=== PATIENT | female | born 1955 | race Caucasian/White ===

== ENCOUNTER → 2016-10-07 | Outpatient (CLI) | payer OTHER | LOC: PET 10:47 | DX: C76.0 Malignant neoplasm of head, face and neck (principal); N89.9 Noninflammatory disorder of vagina, unspecified ==

== ENCOUNTER → 2021-02-25 | Outpatient (CLI) | payer OTHER ==
[~2021-02-25] MED LIST: IBUPROFEN 400400 M1 PO; OMEPRAZOLE 20 M20 M1 PO; PROAIR HFA8.5 GM INH; SYMBICORT160 MCG/4. INH
[2021-02-25 10:58] LABS: CREATININE 0.7 mg/dL (0.6-1.0)
== END ==
LOC: CAT 10:08
PROVIDERS: ATTEND Surgery Vascular Surgery
DX: R22.2 Localized swelling, mass and lump, trunk (principal)

== ENCOUNTER → 2021-03-06 | Outpatient (CLI) | payer OTHER ==
[2021-03-06 11:19] LABS: ABSOLUTE NEUTROPHILS 4.3 thou/uL (1.4-8.2); BASOPHILS 0.4 % (0.0-2.0); EOSINOPHILS 4.1 % (0.0-3.0); HEMATOCRIT 33.9 % (37.0-47.0); HEMOGLOBIN 10.8 gm/dL (12.0-15.0); LYMPHOCYTES 9.8 % (24.0-44.0); MCHC 31.8 g/dL (28.0-37.0); MCV 78.7 fL (80.0-100.0); MONOCYTES 8.9 % (1.0-8.0); PLATELET COUNT 346 thou/uL (150-400); POLYS 76.8 % (36.0-66.0); RBC 4.31 mil/uL (4.20-5.00); WBC 5.6 thou/uL (4.0-11.0)
[2021-03-06 11:47] LABS: APTT 25.1 Seconds (24.5-32.8); INR 0.94; PROTIME 10.3 Seconds (10.5-12.1)
[2021-03-06 11:50] LABS: ALBUMIN 3.8 g/dL (3.4-5.0); CALCIUM 8.9 mg/dL (8.5-10.1); CREATININE 0.8 mg/dL (0.6-1.0); POTASSIUM 3.7 mmol/L (3.5-5.1); TOTAL BILIRUBIN 0.4 mg/dL (0.2-1.0); TOTAL PROTEIN 6.7 g/dL (6.4-8.2)
[2021-03-06 12:06] LABS: URINE BILIRUBIN NEGATIVE (Negative); URINE BLOOD NEGATIVE (Negative); URINE CLARITY CLEAR; URINE COLOR YELLOW; URINE GLUCOSE-RANDOM* NEGATIVE (Negative); URINE KETONES NEGATIVE (Negative); URINE LEUKOCYTES-REFLEX NEGATIVE (Negative); URINE NITRITE-REFLEX NEGATIVE (Negative); URINE PROTEIN (DIPSTICK) NEGATIVE (Negative); URINE SPECIFIC GRAVITY 1.025 (1.005-1.035); URINE UROBILINOGEN 0.2 E.U./dl (0.2-1.0)
--- NOTE | 2021-03-06 12:15 | EKG ---
[place] [address] [facility] [employer] [place] [address] ELECTROCARDIOGRAM REPORT Name: EMIGDIO KAISER Room #: [facility]#: [id number] Admission: 03/06/21 Attend Phys: Darinel Banda MD Discharge: Date of : 57 Report #: [id number] [facility] Test Date: 2021-03-06 Test Time: 11:05:21 Pat Name: EMIGDIO KAISER Department: Room: Gender: F Industrial Specialist: Chantell HARRISON : 1955 Requested By: Darinel Banda Order Number: [id number] : Diallo Lewis Measurements Intervals [place] Rate: 83 P: 32 IN: 118 QRS: 20 QRSD: 77 T: -4 QT: 358 QTc: 421 Interpretive Statements Sinus rhythm Borderline short IN interval Baseline wander in lead(s) V4,V5 No previous ECG available for comparison Electronically Signed On 03-06-2021 12:15:12 CDT by Diallo Lewis [email or web address] <ELECTRONICALLY SIGNED> By: Diallo Lewis MD, [facility] 03/06/21 1215 1105 Diallo Lewis MD, FACC /EPI
== END ==
LOC: PAC 10:14
PROVIDERS: ATTEND Surgery Vascular Surgery
DX: Z01.812 Encounter for preprocedural laboratory examination (principal); J98.11 Atelectasis; J84.10 Pulmonary fibrosis, unspecified

== ENCOUNTER 2021-03-11 06:06 | Inpatient (IN) | payer OTHER ==
[2021-03-11] VITALS (26 sets, daily range): BP systolic 105–142; BP diastolic 48–85
[~2021-03-11] VITALS: Ht 147.3 cm; Wt 60.3 kg
--- NOTE | 2021-03-11 14:45 | NUR ---
report received from Teja de alcoholizer. received in icu # 250 post recovery room with R thoracotomy, R lobectomy (mid and upper lobes) and lymph node biopsy. resting quietly when undisturbed, eye physician hydromorphone infusing, pain upon awakening, alert/oriented x 4, SR, cardene small dose infusing for bp control, r pleural chest tube to negative 20cm suction, no air leak, instructed how to splint r side with any activity or when deep breathing and cough. weak cough effort, able to loosen small amount of sputum, nonproductive at this time. caro with adequate urine output. close friend- Murali (cell#-[phone]) present. She requested we call her with any concerns. she continued she is local, able and wants to assist.
[2021-03-12] VITALS (13 sets, daily range): BP systolic 106–135; BP diastolic 44–72
[2021-03-12 06:19] LABS: HEMATOCRIT 28.6 % (37.0-47.0); HEMOGLOBIN 9.1 gm/dL (12.0-15.0); MCH 25.3 pg (26.0-34.0); MCV 79.2 fL (80.0-100.0); RBC 3.61 mil/uL (4.20-5.00); WBC 10.2 thou/uL (4.0-11.0)
[2021-03-12 06:22] LABS: CALCIUM 8.2 mg/dL (8.5-10.1); CREATININE 0.6 mg/dL (0.6-1.0); POTASSIUM 4.2 mmol/L (3.5-5.1)
--- NOTE | 2021-03-12 07:40 | NUR ---
PATIENT APPEARS TO BE IN PAIN RN NOTIFIED. PATIENT REQUEST PRN TREATMENT, PATIENT DOES HAVE A COARSE WHEEZE WITH NPC DUE TO PAIN, CHEST XRAY ORDERED. RT WILL TITRATE OXYGEN AFTER VIEWING XRAY AND LABS.
--- NOTE | 2021-03-12 16:56 | NUR ---
Chart reviewed and case discussed with the care team. Pt is a&ox4 and indicates she was working and indep prior to admission. She works at [employer] and started sick leave a few days prior to her surgery. She reports that both her sons live out of state and are not available to help postop. She has friends and neighbors that she thinks can help if needed. She is s/p lobectomy pod #1 and in ICU. PT/OT evals in progress. Her pcp is Dr. Garett Valera. She is hoping she can dc home with outpt f/u. Cm role introduced should hh/dme or rehab be indicated. Will follow along.
--- NOTE | 2021-03-13 16:12 | O ---
[facility] [place] [address] OPERATIVE REPORT Name: EMIGDIO KAISER Room #: 250-P ADM IN M.R.#: [id number] Admission: 03/11/21 Attend Phys: Darinel Banda MD Discharge: Date of : 57 Report #: [id number] THIS REPORT FOR: cc: Garett Valera,Garett Cowan,Darinel Willis MD ~ DOC #: [id number] Darinel Banda MD DATE OF SERVICE: 03/11/2021 PREOPERATIVE DIAGNOSIS: Lung cancer, right upper lobe. POSTOPERATIVE DIAGNOSIS: Lung cancer, right upper lobe. OPERATIONS: Bronchoscopy, right posterolateral thoracotomy, right upper and middle lobectomy and lymph node dissection. SURGEON: Darinel Banda MD. SOCIAL STUDIES TEACHER: ESTRELLA Manriquez. ANESTHESIA: General. INDICATION: The patient is a 66-year-old with a history of previous cancer. The patient had new diagnosis of an upper lobe lesion and biopsy was consistent with her previous cancer. This was a relatively central upper lobe lung lesion, although it was a solitary lesion, it was a large lesion. In consultation with Oncology and Radiology and Therapeutic Radiology, the decision was made to attempt resection. FINDINGS AND TECHNIQUE: After general anesthesia was established, flexible diagnostic bronchoscopy was performed, no endobronchial lesions were noted. Double lumen endotracheal tube was placed and its position was ascertained with bronchoscopic guidance. The patient was positioned with right side up. Exposure was obtained through a posterolateral thoracotomy utilizing a rib sparing muscle sparing approach and entering through the fifth interspace. The major fissure was complete, but the minor fissure was incomplete and the tumor appeared to be crossing the minor fissure into the lower lobe and it was quite central. It appeared that the only hope we would have a resection would be to perform a bilobectomy. As such, dissection began at the hilum. The truncus anterior to the upper lobe was dissected, stapled and divided. The pericardium was opened to expose the upper lobe in the intrapericardial position and this was encircled, stapled and [facility] [address] [place] [address] OPERATIVE REPORT Name: KAISEREMIGDIO Room #: 250-P [facility] IN M.R.#: [id number] Admission: 03/11/21 Attend Phys: Darinel Banda MD Discharge: Date of : 57 Report #: [id number] divided. The major fissure was completed posteriorly and this was done after the middle lobe bronchus was identified, tested, stapled and divided. The upper lobe bronchus was similarly encircled, tested, stapled and divided. This left a recurrent arterial branch to the upper lobe and this was stapled and divided and then the specimen was submitted for permanent section in pathology. Lymph nodes in the hilum, in the paratracheal region and in the subcarinal region were dissected and sent for permanent pathology. No lymph node was encountered in the pulmonary ligament, which was divided. Bronchial stump was tested and found to be secure. Chest was irrigated with antibiotic solution. Chest tube was brought through a separate stab wound and then the chest was closed in the usual fashion to continue the rib sparing and nerve sparing approach. The patient tolerated the procedure well and was taken to the recovery area in good condition. All counts were reported as correct. Darinel Banda MD JF/OTTONIEL <ELECTRONICALLY SIGNED> By: Darinel Banda MD 03/13/21 1612 1140 1238 Darinel Banda MD /nt
[2021-03-13 16:59] VITALS: BP 139/72
[2021-03-13 20:15] VITALS: BP 113/57
[2021-03-14 04:20] VITALS: BP 125/64
--- NOTE | 2021-03-14 05:32 | NUR ---
PT IS A/0X4 BUT WITH HIGH LEVELS OF ANXIETY. PT CAN AMBULATE WITH SBA TO [facility]. POC FOR PAIN IS PO Q4. BOTH WOUND SITES ARE C/D/I. HOURLY ROUNDING.
[2021-03-14 07:20] VITALS: BP 127/74
[2021-03-14 11:50] VITALS: BP 148/84
--- NOTE | 2021-03-14 12:07 | PATH ---
[facility] [place] [address] [place] [address] PATHOLOGY RPT PROCEDURE Name: SUSAN KAISER Room #: 212-P ADM IN M.R.#: [id number] Admission: 03/11/21 Date of : 57 Discharge: Report #: [id number] Path Case #: [id number] [facility] Accession Number: [id number] . 01 Material submitted: . PART A: lung - RIGHT UPPER AND MIDDLE LOBES. Modifiers: right, upper, middle PART B: lymph node - HILAR LYMPH NODE. Modifiers: HILAR PART C: lymph node - 11R LYMPH NODE. Modifiers: 11R PART D: lymph node - 4R LYMPH NODE. Modifiers: 4R PART E: lymph node - SECOND 4R LYMPH NODE. Modifiers: second, 4R PART F: lymph node - THIRD 4R LYMPH NODE. Modifiers: third, 4R PART G: lymph node - PARAESOPHAGEAL LYMPH NODE. Modifiers: PARAESOPHAGEAL PART H: lymph node - SUBCARINAL LYMPH NODE. Modifiers: subcarinal . 01 Clinical history: . THORACOTOMY FLEXIBLE BRONCHOSCOPY LOBECTOMY, LUNG BIOPSY LYMPH NODE MALIGNANT NEOPLASM OF RIGHT UPPER LOBE OF LUNG . . 02 Diagnosis: A. Lung, right upper and middle lobes, bi-lobectomy: - MODERATELY DIFFERENTIATED ADENOCARCINOMA, MOST CONSISTENT WITH METASTATIC MULLERIAN ORIGIN, (HISTORY OF UTERINE CANCER) SEE COMMENT. - TUMOR MEASURES 6.1 X 4.2 X 3.7 CM IN GREATEST DIMENSION INVOLVING BOTH UPPER AND MIDDLE LOBES. - Bronchial and vascular margins free of malignancy. - Negative for pleural visceral invasion. - LYMPHVASCULAR SPACE INVASION PRESENT WITH EMBOLUS IN MEDIUM VESSEL. - TUMOR PRESENT IN ALVEOLAR AIRSPACES. - ONE LYMPH NODE SHOWING METASTATIC ADENOCARCINOMA OF 11 HILAR LYMPH NODES (1/11). . B. Lymph node (1) hilar lymph node, biopsy: - One reactive lymph node; negative for malignancy (0/1). . C. Lymph node (1) 11R node, biopsy: - One reactive lymph node; negative for malignancy (0/1). . D. Lymph node (1) 4R node, biopsy: - One reactive lymph node; negative for malignancy (0/1). . E. Lymph node (1) second 4R node, biopsy: - One reactive lymph node; negative for malignancy (0/1). . [address] [address] PATHOLOGY RPT PROCEDURE Name: SUSAN KAISER Room #: 212-P ADM IN M.R.#: [id number] Admission: 03/11/21 Date of : 57 Discharge: Report #: [id number] Path Case #: [id number] F. Lymph node (1) third 4R node, biopsy: - One reactive lymph node; negative for malignancy (0/1). . G. Paraesophageal lymph node (1), biopsy: - One reactive lymph node; negative for malignancy (0/1). . H. Subcarinal lymph node, biopsy: - One reactive lymph node; negative for malignancy (0/1). . 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 02 Comment: Multiple properly controlled immunohistochemical stains are performed on block A4. The tumor shows strong membranous reactivity to CK7, and shows nuclear reactivity with PAX 8 as well as 2 to 3+ nuclear reactivity within approximately 60% of the tumor cells with ER. CK20, and CDX2 are nonreactive arguing against metastatic lower gastrointestinal tract origin. The TTF-1 as well as Napsin immunohistochemical stain are nonreactive within the tumor arguing against a lung primary. There is no granular reactivity identified with Napsin A immunohistochemical stain within the tumor cells. The alveolar cells react appropriately to TTF-1 and Napsin A acting as internal controls. WT-1 is nonreactive. . Findings of this case are communicated to Dr. Darinel Banda at approximately 4:15 p.m. on 03/13/2021. . 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 02 Electronically signed: . Georgina Hwang MD, Pathologist NPI- [id number] . 01 Gross description: . A. The specimen is received in formalin, labeled "Susan Kaiser, right upper and middle lobes". Received is a 206 g lobectomy specimen measuring 15.2 x 9.8 x 5.5 cm in greatest dimensions. The bronchial and vascular margins of each lobe are stapled. The pleura is pink-powell to pink-purple and smooth in appearance. In the area of the bronchial margins, the specimen is indurated and the opposing pleural surface is inked blue. Sectioning reveals a white-powell, indurated mass, identified in both upper and middle lobes, measuring 6.1 x 4.2 x 3.7 cm in greatest dimensions. The mass grossly abuts the bronchus of the upper lobe, grossly abuts the pleura, and grossly abuts the bronchus of the middle lobe. The mass is 0.3 cm from the stapled margin of resection on the upper lobe. The remainder of the specimen is comprised of normal red-brown lung parenchyma. No additional nodules or lesions are noted grossly. [address] [address] PATHOLOGY RPT PROCEDURE Name: SUSAN KAISER Room #: 212-P [facility] IN [facility].#: [id number] Admission: 03/11/21 Date of : 57 Discharge: Report #: [id number] Path Case #: [id number] possible lymph nodes are identified along the hilar aspect ranging in size from 0.4-0.8 cm. The specimen is submitted representatively as follows: . A1 bronchiovascular margin of upper lobe A2 bronchiovascular margin of middle lobe A3 sales representative uniforms section of mass to show relationship with bronchus of upper lobe A4 sales representative uniforms section of mass to show relationship with bronchus of middle lobe A5 sales representative uniforms section of mass to show relationship with pleura at the hilar aspect A6 sales representative uniforms section of mass to show relationship with adjacent vessels of middle lobe A7 sales representative uniforms section of mass with adjacent uninvolved lung parenchyma A8 sales representative uniforms section of uninvolved lung parenchyma upper lobe A9 sales representative uniforms section of uninvolved lung parenchyma middle lobe A10 intact possible lymph nodes. (CAA; 03/12/2021) . B. The specimen is received in formalin, labeled "Susan Kaiser hilar lymph node". Received is a segment of pink-powell lobulated tissue measuring 1.1 x 0.6 x 0.3 cm in greatest dimensions. The specimen is bisected and entirely submitted in cassette B1. . C. The specimen is received in formalin, labeled "Susan Kaiser, 11R lymph node". Received is a segment of pink-powell tissue measuring 0.6 x 0.5 x 0.3 cm in greatest dimensions. The specimen is submitted intact in cassette C1. . D. The specimen is received in formalin, labeled "Susan Kaiser, 4R lymph node". Received is a segment of yellow-powell lobulated tissue measuring 1.3 x 1.0 x 0.3 cm in greatest dimensions. Dissection and palpation of the specimen reveals a single lymph node measuring 0.3 cm in maximum dimensions. The specimen is submitted entirely in cassette D1. . E. The specimen is received in formalin, labeled "Susan Kaiser, second 4R lymph node". Received is a segment of pink-lopez, shaggy lobulated tissue measuring 1.3 x 0.7 x 0.4 cm in greatest dimensions. The specimen is submitted entirely in cassette E1. . F. The specimen is received in formalin, labeled "Susan Kaiser, third 4R lymph node". Received is a segment of pink-lopez to anthracotic lobulated tissue measuring 2.4 x 1.1 x 0.3 cm in greatest dimensions. The specimen is submitted entirely in cassette F1. . G. The specimen is received in formalin, labeled "Susan Kaiser, paraesophageal lymph node". Received is a segment of pink-lopez lobulated [facility] [address] [place] [address] PATHOLOGY RPT PROCEDURE Name: SUSAN KAISER Room #: 212-P ADM IN M.R.#: [id number] Admission: 03/11/21 Date of : 57 Discharge: Report #: [id number] Path Case #: [id number] tissue measuring 0.9 x 0.6 x 0.4 cm in greatest dimensions. The specimen is bisected and entirely submitted in cassette G1. . H. The specimen is received in formalin, labeled "Susan Kaiser, subcarinal lymph node". Received is a segment of pink-lopez, shaggy lobulated tissue measuring 2.1 x 1.3 x 0.5 cm in greatest dimensions. The specimen is bisected and entirely submitted in cassette H1. (CAA; 03/11/2021) QA/QA 03/12/2021 1640 Local . 02 Pathologist provided ICD-10: C34.2, C34.11, C77.1 . 02 CPT . 797489, [id number], 667094, 901210, 890523, 286286, M34007, [id number] Specimen Comment: A courtesy copy of this report has been sent to [phone], [phone] Specimen Comment: [id number] Specimen Comment: Report sent to / DR CURRAN Performed at: [address] [facility], [place] [id number] MD Nelson Hale MD Phone: [phone] Performed at: [address] [facility] [id number] MD Georgina Hwang MD Phone: [phone]
[2021-03-14 15:13] VITALS: BP 148/84
--- NOTE | 2021-03-14 15:13 | NUR ---
Pt doing well and progressing toward dc possibley tomorrow. Script for a st cane faxed to provider plus and therapy to issue tomorrow before dc home. Spoke with pt at bedside and she does not feel she will need home health. Her sister is making arrangements to come and stay with her a few days. She prefers outpt f/u at this time vs hh. Nursing advised to page therapy on day of dc to issue her a st cane.
[2021-03-14 16:40] VITALS: BP 134/80
[2021-03-14 21:20] VITALS: BP 125/110
--- NOTE | 2021-03-15 00:58 | NUR ---
2030 PATIENT TOOK OWN IV OUT. REINFORCED THAT UNTIL DISCHARGE DR WANTS IV ACCESS. PATIENT STILL REFUSES TO HAVE IV ACCESS STATING SHE DOESNT NEED IT.
--- NOTE | 2021-03-15 03:09 | NUR ---
RESTED QUIETLY MOST OF SHIFT. PAIN MEDICATIONS GIVEN NEEDED FOR COMFORT. WORKING ON GOALS AND PLAN OF CARE FOR NOC. PLANS FOR DISCHARGE HOME THIS AM. USES CANE TO WALK TO BATHROOM NEEDED. CONTINUE TO ASSES CLOSELY.
[2021-03-15 04:45] VITALS: BP 150/85
[2021-03-15 07:45] VITALS: BP 140/77
[2021-03-15 08:17] VITALS: BP 140/77
[2021-03-15 11:37] VITALS: BP 148/84
--- NOTE | 2021-03-15 11:57 | NUR ---
PT CARE ASSUMED AT 0700. ASSESSMENTS CHARTED. MEDICATIONS CHARTED. IV WAS REMOVED BY PT LAST NIGHT, REFUSED FOR IT TO BE REPLACED. SINUS RHYTHM. TOILET; STAND-BY ASSIST. PT STATES SHE WILL AUTOMATIC CHIEF A CANE AFTER LEAVING. PT TO BE DISCHARGED HOME. DISCHARGE PAPERWORK SIGNED. TELEMETRY D/C'D.
== END 2021-03-15 13:32 | disposition home or self-care (01) | DRG 167 ==
LOC: TBA 06:06 → PRE 09:26 → ICU 14:43 → TBA 16:46 → 2N 03-13 16:51
PROVIDERS: Physician Assistant; ADMIT Surgery Vascular Surgery; ATTEND Surgery Vascular Surgery
PROC: 0BBC8ZZ Excision of Right Upper Lung Lobe, Via Natural or Artificial Opening Endoscopic (ICD-10-PCS; principal; 2021-03-11)
PROC: 07B74ZX Excision of Thorax Lymphatic, Percutaneous Endoscopic Approach, Diagnostic (ICD-10-PCS; principal; 2021-03-11)
DX: C34.11 Malignant neoplasm of upper lobe, right bronchus or lung (principal); D62 Acute posthemorrhagic anemia; K21.9 Gastro-esophageal reflux disease without esophagitis; J45.909 Unspecified asthma, uncomplicated; Z88.0 Allergy status to penicillin; Z88.2 Allergy status to sulfonamides; Z88.8 Allergy status to other drugs, medicaments and biological substances; Z88.1 Allergy status to other antibiotic agents; Z91.011 Allergy to milk products; Z90.49 Acquired absence of other specified parts of digestive tract; Z85.42 Personal history of malignant neoplasm of other parts of uterus; Z90.710 Acquired absence of both cervix and uterus
CPT/HCPCS: 10078; 10081; 50010; 50101; 50386; 50417; 50455; 50739; 50740; 51301; 52191; 52301; 52303; 54118; 56524; 56525; 56526; 56527; 56528; 62110; 62900; 65020; 65105; 65129; 70005